=== PATIENT | female | born 1990 | race Caucasian/White ===

== ENCOUNTER 2017-11-09 12:56 | Emergency (ER) | payer OTHER ==
[2017-11-09 14:54] LABS: ADD MAN DIFF? NO
[2017-11-09 15:01] LABS: BASOPHIL # 0.1 10^3/ul (0.0-0.1); BASOPHILS % 0.6 % (0.0-2.0); EOSINOPHILS # 0.1 10^3/ul (0.0-0.5); EOSINOPHILS % 1.6 % (0.0-7.0); HEMATOCRIT 39.8 % (37.0-47.0); HEMOGLOBIN 13.4 g/dl (12.0-16.0); LYMPHOCYTES # 3.2 10^3/ul (0.8-2.9); LYMPHOCYTES % 36.8 % (15.0-51.0); MEAN CORPUSCULAR HEMOGLOBIN 29.4 pg (29.0-33.0); MEAN CORPUSCULAR HGB CONC 33.7 g/dl (32.0-37.0); MEAN CORPUSCULAR VOLUME 87.3 fl (82.0-101.0); MONOCYTE # 0.6 10^3/ul (0.3-0.9); MONOCYTES % 7.3 % (0.0-11.0); NEUTROPHIL # 4.6 10^3/ul (1.6-7.5); NEUTROPHILS % 52.9 % (39.0-77.0); PLATELET COUNT 240 10^3/UL (140-415); RED BLOOD COUNT 4.56 10^6/ul (4.20-5.40); RED CELL DISTRIBUTION WIDTH 12.8 % (11.5-14.5)
[2017-11-09 15:01] LABS: WHITE BLOOD COUNT 8.7 10^3/ul (4.8-10.8)
[2017-11-09 15:09] LABS: ADD UMIC NO; UR ASCORBIC ACID NEGATIVE (NEGATIVE); UR BILIRUBIN (Dip) NEGATIVE (NEGATIVE); UR BLOOD (Dip) NEGATIVE (NEGATIVE); UR CLARITY CLEAR (CLEAR); UR COLOR YELLOW (YELLOW); UR GLUCOSE (Dip) NEGATIVE (NEGATIVE); UR KETONES (Dip) TRACE mg/dL (NEGATIVE); UR LEUKOCYTE ESTERASE (Dip) NEGATIVE Leu/ul (NEGATIVE); UR NITRITE (Dip) NEGATIVE (NEGATIVE); UR SPECIFIC GRAVITY (Dip) 1.023 (1.003-1.030); UR TOTAL PROTEIN (Dip) NEGATIVE (NEGATIVE); UR UROBILINOGEN (Dip) NEGATIVE (NEGATIVE)
== END 2017-11-09 16:51 | disposition home or self-care (01) ==
LOC: FTE 12:56
DX: O26.891 Other specified pregnancy related conditions, first trimester (principal); R10.2 Pelvic and perineal pain; Z3A.01 Less than 8 weeks gestation of pregnancy
CPT/HCPCS: 36415; 76801; 76817; 81003; 84702; 85025; 86900; 86901; 99284-25

== ENCOUNTER 2017-12-03 14:11 | Inpatient (IN) | payer OTHER ==
[2017-12-03] MEDS ORDERED: AL HYDROX/MG HYDROX/SIMETH 30 ML CUP PO (15:00)
[2017-12-03] MEDS ORDERED: DEXTROSE 50% 50 ML SYRINGE IV ×2 (15:30)
[2017-12-03] MEDS ORDERED: GLUCAGON 1 MG INJ IM (15:30)
[2017-12-03] MEDS ORDERED: GLUCOSE GEL 15 GRAM TUBE PO ×2 (15:30)
[2017-12-03] MEDS ORDERED: GLUCOSE GEL 15 GRAM TUBE BUCCAL (15:30)
[2017-12-03 15:44] LABS: ADD MAN DIFF? NO
[2017-12-03 15:48] LABS: WHITE BLOOD COUNT 10.3 10^3/ul (4.8-10.8)
[2017-12-03 15:48] LABS: BASOPHIL # 0.1 10^3/ul (0.0-0.1); BASOPHILS % 0.5 % (0.0-2.0); EOSINOPHILS # 0.1 10^3/ul (0.0-0.5); EOSINOPHILS % 0.9 % (0.0-7.0); HEMATOCRIT 38.7 % (37.0-47.0); HEMOGLOBIN 12.9 g/dl (12.0-16.0); LYMPHOCYTES # 3.2 10^3/ul (0.8-2.9); LYMPHOCYTES % 31.2 % (15.0-51.0); MEAN CORPUSCULAR HEMOGLOBIN 29.2 pg (29.0-33.0); MEAN CORPUSCULAR HGB CONC 33.3 g/dl (32.0-37.0); MEAN CORPUSCULAR VOLUME 87.6 fl (82.0-101.0); MEAN PLATELET VOLUME 11.6 fl (7.4-10.4); MONOCYTE # 0.7 10^3/ul (0.3-0.9); MONOCYTES % 6.4 % (0.0-11.0); NEUTROPHIL # 6.3 10^3/ul (1.6-7.5); NEUTROPHILS % 60.7 % (39.0-77.0); PLATELET COUNT 250 10^3/UL (140-415); RED BLOOD COUNT 4.42 10^6/ul (4.20-5.40); RED CELL DISTRIBUTION WIDTH 12.2 % (11.5-14.5)
[2017-12-03 16:00] LABS: HEMOGLOBIN A1C 5.9 % (0-5.9)
[2017-12-03 16:09] LABS: ALANINE AMINOTRANSFERASE 41 IU/L (13-69); ALBUMIN 3.4 g/dl (3.3-4.9); ALBUMIN/GLOBULIN RATIO 1.03; ALKALINE PHOSPHATASE 37 IU/L (42-121); ANION GAP 12 (8-16); ASPARTATE AMINO TRANSFERASE 23 IU/L (15-46); BILIRUBIN,INDIRECT 0.4 mg/dl (0-1.1); BILIRUBIN,TOTAL 0.4 mg/dl (0.2-1.3); BLOOD UREA NITROGEN 13 mg/dl (7-20); CALCIUM 9.6 mg/dl (8.4-10.2); CARBON DIOXIDE 27 mmol/L (21-31); CHLORIDE 102 mmol/L (97-110); CREATININE 0.64 mg/dl (0.44-1.00); GLUCOSE 92 mg/dl (70-220); SODIUM 137 mmol/L (135-144); TOTAL PROTEIN 6.7 g/dl (6.1-8.1)
[2017-12-03] MEDS: ACCU-CHEK XX ×3 (17:25→20:40)
[2017-12-03] MEDS: INSULIN ASPART [NOVOLOG] 3 ML PEN SC ×2 (17:35→21:00)
[2017-12-04] MEDS: DOCUSATE SODIUM 100 MG CAP PO (09:08)
[2017-12-04] MEDS: FERROUS SULFATE (EC) 325 MG TAB PO (09:09)
[2017-12-04] MEDS: PRENATAL VITAMIN PO (09:09)
== END 2017-12-04 13:23 | disposition home or self-care (01) | DRG 781 ==
LOC: PP1 14:11 → L-D 12-04 09:32
DX: O24.419 Gestational diabetes mellitus in pregnancy, unspecified control (principal); Z3A.08 8 weeks gestation of pregnancy
CPT/HCPCS: 76801; 80053; 82962; 83036; 85025; 93005

== ENCOUNTER 2018-04-18 10:27 | Outpatient (CLI) | payer OTHER | END 2018-04-18 12:54 | disposition home or self-care (01) | LOC: OBT 10:27 → L-D 10:27 → OBT 12:54 | DX: O98.912 Unspecified maternal infectious and parasitic disease complicating pregnancy, second trimester (principal); Z3A.27 27 weeks gestation of pregnancy; J02.9 Acute pharyngitis, unspecified | CPT/HCPCS: 76817; 76818 ==

== ENCOUNTER 2018-04-18 13:06 | Emergency (ER) | payer OTHER | END 2018-04-18 15:36 | disposition home or self-care (01) | LOC: FTE 13:06 | DX: O99.512 Diseases of the respiratory system complicating pregnancy, second trimester (principal); J02.9 Acute pharyngitis, unspecified; Z3A.24 24 weeks gestation of pregnancy | CPT/HCPCS: 99283; Z7502 ==

== ENCOUNTER 2018-06-24 12:41 | Outpatient (CLI) | payer OTHER ==
[2018-06-24 13:45] LABS: ADD UMIC YES; UR ASCORBIC ACID NEGATIVE (NEGATIVE); UR BACTERIA FEW /HPF (NONE SEEN); UR BILIRUBIN (Dip) NEGATIVE (NEGATIVE); UR BLOOD (Dip) NEGATIVE (NEGATIVE); UR CALCIUM OXALATE CRYSTAL MANY /HPF (NONE SEEN); UR CLARITY CLOUDY (CLEAR); UR COLOR AMBER (YELLOW); UR GLUCOSE (Dip) NEGATIVE (NEGATIVE); UR KETONES (Dip) NEGATIVE (NEGATIVE); UR LEUKOCYTE ESTERASE (Dip) NEGATIVE Leu/ul (NEGATIVE); UR MUCUS MANY /HPF (NONE SEEN); UR NITRITE (Dip) NEGATIVE (NEGATIVE); UR RBC 3 /HPF (0-5); UR SPECIFIC GRAVITY (Dip) 1.026 (1.003-1.030); UR SQUAMOUS EPITHELIAL CELL MODERATE /HPF (FEW); UR TOTAL PROTEIN (Dip) 1+ mg/dl (NEGATIVE); UR UROBILINOGEN (Dip) 2+ mg/dL (NEGATIVE); UR WBC 13 /HPF (0-5)
== END 2018-06-24 15:27 | disposition home or self-care (01) ==
LOC: OBT 12:41 → L-D 12:43 → OBT 15:27
DX: O24.419 Gestational diabetes mellitus in pregnancy, unspecified control (principal); O26.893 Other specified pregnancy related conditions, third trimester; R10.2 Pelvic and perineal pain; Z3A.37 37 weeks gestation of pregnancy
CPT/HCPCS: 76818; 81001

== ENCOUNTER 2018-07-07 10:13 | Inpatient (IN) | payer OTHER ==
[2018-07-07] MEDS ORDERED: BUTORPHANOL 2 MG INJ IV (10:30)
[2018-07-07] MEDS ORDERED: CARBOPROST 250 MCG INJ IM (10:30)
[2018-07-07] MEDS ORDERED: LIDOCAINE 1% (MPF) 30 ML INJ INJ (10:30)
[2018-07-07] MEDS ORDERED: MISOPROSTOL 200 MCG TAB PR (10:30)
[2018-07-07] MEDS ORDERED: OXYTOCIN 30 UNITS/LR 500 ML IV ×2 (10:30)
[2018-07-07] MEDS: LACTATED RINGER'S 1,000 ML IV ×3 (10:53→21:29)
[2018-07-07 11:06] LABS: WHITE BLOOD COUNT 6.4 10^3/ul (4.8-10.8)
[2018-07-07 11:06] LABS: ADD MAN DIFF? NO; BASOPHILS % 0.5 % (0.0-2.0); EOSINOPHILS % 0.6 % (0.0-7.0); HEMATOCRIT 40.5 % (37.0-47.0); HEMOGLOBIN 13.7 g/dl (12.0-16.0); LYMPHOCYTES # 1.6 10^3/ul (0.8-2.9); LYMPHOCYTES % 25.4 % (15.0-51.0); MEAN CORPUSCULAR HEMOGLOBIN 29.5 pg (29.0-33.0); MEAN CORPUSCULAR HGB CONC 33.8 g/dl (32.0-37.0); MEAN CORPUSCULAR VOLUME 87.1 fl (82.0-101.0); MEAN PLATELET VOLUME 12.5 fl (7.4-10.4); MONOCYTE # 0.4 10^3/ul (0.3-0.9); MONOCYTES % 6.6 % (0.0-11.0); NEUTROPHIL # 4.2 10^3/ul (1.6-7.5); NEUTROPHILS % 66.1 % (39.0-77.0); PLATELET COUNT 253 10^3/UL (140-415); RED BLOOD COUNT 4.65 10^6/ul (4.20-5.40); RED CELL DISTRIBUTION WIDTH 12.7 % (11.5-14.5)
[2018-07-07 11:25] LABS: PROTIME 12.3 Sec (11.9-14.9)
[2018-07-07 11:26] LABS: PARTIAL THROMBOPLASTIN TIME 30.7 Sec (23.0-35.0)
[2018-07-07 12:36] LABS: HEPATITIS B SURFACE ANTIGEN NEGATIVE (NEGATIVE)
[2018-07-07] MEDS: OXYTOCIN 30 UNITS/LR 500 ML IV ×2 (12:43→22:49)
[2018-07-07] MEDS: DEXTROSE 5%-LR 1,000 ML IV (12:44)
[2018-07-07] MEDS ORDERED: FENTAnyl 2MCG/ML-ROPIV 0.2% 100 ML (13:58)
[2018-07-07] MEDS ORDERED: NALOXONE (0.4 MG/ML) INJ IV (14:30)
[2018-07-07] MEDS ORDERED: FENTAnyl 2MCG/ML-ROPIV 0.2% 100 ML BAG EPI (14:30)
[2018-07-07 15:01] LABS: RAPID PLASMA REAGIN NONREACTIVE (NR)
[2018-07-07] MEDS: METHYLERGONOVINE 0.2 MG INJ IM (22:42)
[2018-07-07] MEDS: IBUPROFEN 600 MG TAB PO (23:35)
[2018-07-08] MEDS ORDERED: LACTATED RINGER'S 1,000 ML IV* (02:46)
[2018-07-08] MEDS: HYDROCODONE/APAP (5/325) TAB PO ×3 (02:56→17:19)
[2018-07-08] MEDS ORDERED: ACETAMINOPHEN 325 MG TAB PO (03:00)
[2018-07-08] MEDS ORDERED: CARBOPROST 250 MCG INJ IM (03:00)
[2018-07-08] MEDS ORDERED: METHYLERGONOVINE 0.2 MG INJ IM (03:00)
[2018-07-08] MEDS ORDERED: OXYTOCIN 30 UNITS/LR 500 ML IV (03:00)
[2018-07-08] MEDS ORDERED: DIBUCAINE 1% 30 GM OINT TOP (03:00)
[2018-07-08] MEDS ORDERED: MISOPROSTOL 200 MCG TAB PR (03:00)
[2018-07-08 06:10] LABS: ADD MAN DIFF? NO
[2018-07-08 06:14] LABS: WHITE BLOOD COUNT 11.4 10^3/ul (4.8-10.8)
[2018-07-08 06:14] LABS: BASOPHILS % 0.4 % (0.0-2.0); EOSINOPHILS % 0.4 % (0.0-7.0); HEMATOCRIT 37.8 % (37.0-47.0); HEMOGLOBIN 12.9 g/dl (12.0-16.0); LYMPHOCYTES # 2.7 10^3/ul (0.8-2.9); LYMPHOCYTES % 23.6 % (15.0-51.0); MEAN CORPUSCULAR HEMOGLOBIN 29.6 pg (29.0-33.0); MEAN CORPUSCULAR HGB CONC 34.1 g/dl (32.0-37.0); MEAN CORPUSCULAR VOLUME 86.7 fl (82.0-101.0); MEAN PLATELET VOLUME 12.5 fl (7.4-10.4); MONOCYTE # 0.9 10^3/ul (0.3-0.9); MONOCYTES % 7.9 % (0.0-11.0); NEUTROPHIL # 7.7 10^3/ul (1.6-7.5); NEUTROPHILS % 67.2 % (39.0-77.0); PLATELET COUNT 222 10^3/UL (140-415); RED BLOOD COUNT 4.36 10^6/ul (4.20-5.40); RED CELL DISTRIBUTION WIDTH 12.7 % (11.5-14.5)
[2018-07-08] MEDS: SENNA/DOCUSATE NA (8.6MG/50MG) TAB PO ×2 (08:29→21:17)
[2018-07-08] MEDS: BENZOCAINE 20% 56 ML SPRAY TOP (08:40)
[2018-07-08] MEDS: WITCH HAZEL/GLYCERIN PAD PR (08:40)
[2018-07-08] MEDS: IBUPROFEN 600 MG TAB PO ×4 (08:41→23:30)
[2018-07-09] MEDS: IBUPROFEN 600 MG TAB PO ×2 (05:39→13:09)
[2018-07-09] MEDS: DIPHTH/TET/ACEL PERTUSS (ADULT) 0.5 ML VIAL IM* (09:00)
[2018-07-09] MEDS: SENNA/DOCUSATE NA (8.6MG/50MG) TAB PO (09:24)
== END 2018-07-09 18:46 | disposition home or self-care (01) | DRG 807 ==
LOC: L-D 10:13 → PP1 07-08 16:25
PROVIDERS: Obstetrics & Gynecology
PROC: 10E0XZZ Delivery of Products of Conception, External Approach (ICD-10-PCS; principal; 2018-07-07 09:00)
PROC: 0HQ9XZZ Repair Perineum Skin, External Approach (ICD-10-PCS; 2018-07-07 09:00)
PROC: 3E033VJ Introduction of Other Hormone into Peripheral Vein, Percutaneous Approach (ICD-10-PCS; 2018-07-07 09:00)
DX: O69.81X0 Labor and delivery complicated by cord around neck, without compression, not applicable or unspecified (principal); Z37.0 Single live birth; O70.0 First degree perineal laceration during delivery; Z3A.39 39 weeks gestation of pregnancy
CPT/HCPCS: 62322; 76815; 82962; 85025; 85610; 85730; 86592; 86850; 86900; 86901; 87340

== ENCOUNTER 2018-09-10 07:48 | Day surgery (SDC) | payer OTHER ==
[2018-09-10] MEDS: LACTATED RINGER'S 1,000 ML IV (08:34)
[2018-09-10] MEDS ORDERED: PROPOFOL 20 ML (09:59)
[2018-09-10] MEDS ORDERED: MEPERIDINE 100 MG INJ (09:59)
[2018-09-10] MEDS ORDERED: GLYCOPYRROLATE 0.4 MG INJ ×3 (09:59→10:48)
[2018-09-10] MEDS ORDERED: LIDOCAINE 2% (SDV) 5 ML INJ (09:59)
[2018-09-10] MEDS ORDERED: NEOSTIGMINE 3 MG/3 ML SYRINGE ×2 (09:59→10:48)
[2018-09-10] MEDS ORDERED: SUCCINYLCHOLINE CHLORIDE 100 MG/5 ML SYG IV (09:59)
[2018-09-10] MEDS ORDERED: ROCURONIUM 50 MG INJ (09:59)
[2018-09-10] MEDS ORDERED: SEVOFLURANE 15 MIN (10:00)
[2018-09-10] MEDS: CEFAZOLIN 2 GM/50 ML (PMX) 50 ML IVPB (10:47)
[2018-09-10] MEDS ORDERED: ONDANSETRON 4 MG INJ (10:48)
[2018-09-10] MEDS ORDERED: METOCLOPRAMIDE 10 MG INJ (10:48)
[2018-09-10] MEDS ORDERED: CEFAZOLIN 1 GM INJ (10:48)
[2018-09-10] MEDS ORDERED: METOCLOPRAMIDE 10 MG INJ IV (11:00)
[2018-09-10] MEDS ORDERED: HYDROmorphONE 1 MG/5 ML IV SYRINGE IV (11:00)
[2018-09-10] MEDS ORDERED: DIPHENHYDRAMINE 50 MG INJ IV (11:00)
[2018-09-10] MEDS ORDERED: hydrALAzine 20 MG INJ IV (11:00)
[2018-09-10] MEDS ORDERED: FENTAnyl 50 MCG/ML VIAL IV (11:00)
[2018-09-10] MEDS ORDERED: MIDAZOLAM 1 MG/ML 2 ML INJ IV (11:00)
[2018-09-10] MEDS ORDERED: OXYCODONE/ACETAMINOPHEN (5/325) TAB PO ×2 (11:00)
[2018-09-10] MEDS ORDERED: EPHEDrine 25 MG/5 ML SYG IV (11:00)
[2018-09-10] MEDS ORDERED: LABETALOL HCL 20MG INJ IV (11:00)
[2018-09-10] MEDS ORDERED: ONDANSETRON 4 MG INJ IV ×2 (11:00→12:00)
[2018-09-10] MEDS: BUPIVACAINE 0.5%/EPI (SDV) 30 ML INJ (11:39)
[2018-09-10] MEDS ORDERED: HYDROCODONE/APAP (5/325) TAB PO ×2 (12:00)
[2018-09-10] MEDS: FENTAnyl 50 MCG/ML VIAL IV ×3 (12:06→13:07)
[2018-09-10] MEDS: HYDROmorphONE 1 MG/5 ML IV SYRINGE IV ×3 (12:06→13:07)
[2018-09-10] MEDS: KETOROLAC 30 MG INJ IV (12:35)
[2018-09-10] MEDS: morphine 2 MG INJ IV (12:36)
[2018-09-10] MEDS: MEPERIDINE 25 MG INJ IV (13:08)
== END 2018-09-10 14:27 | disposition home or self-care (01) ==
LOC: SDS 07:48
DX: Z30.2 Encounter for sterilization (principal)
CPT/HCPCS: 58670; 84703; 88302